=== PATIENT | female | born 1965 | race Caucasian/White ===

== ENCOUNTER 2017-03-07 10:03 | Emergency (ER) | payer SELFPAY ==
[2017-03-07 10:50] VITALS: BP 140/70; PULSE 70; RESP 16; TEMP 97; O2SAT 98; BMI 39.7
--- NOTE | 2017-03-07 12:04 | ED PDOC ---
HPI: Skin/Bite Injury Chief Complaint (Provider): 52 noé good female presents with complaints of left arm rash. She states History Per: Patient History/Exam Limitations: no limitations Onset/Duration Of Symptoms: Days (4 days) Location Of Injury: Left: Elbow, Shoulder Quality Of Symptoms: Painful, Itching Severity: Mild Pain Scale Rating Of: 4 Time Seen by Provider: 03/07/17 10:32 Chief Complaint (Nursing): Abnormal Skin Integrity Past Medical History - Medical History PMH: No Chronic Diseases Denies: Chronic Kidney Disease - Surgical History Surgical History: (x2) - Family History Family History: States: No Known Family Hx Vital Signs: Last Vital Signs Temp 97.0 F L 03/07/17 10:49 Pulse 70 03/07/17 10:49 Resp 16 03/07/17 10:49 BP 140/70 03/07/17 10:49 Pulse Ox 98 03/08/17 10:11 - Home Medications Home Medications: Ambulatory Orders Medication Instructions Recorded Oxycodone HCl/Acetaminophen 1 tab PO .Q4-6 PRN 03/15/15 [Percocet 325 mg-5 mg] Cephalexin [Keflex] 500 mg PO QID #28 capsule 03/07/17 - Allergies Allergies/Adverse Reactions: Allergies Allergy/AdvReac Type Severity Reaction Status Date / Time No Known Allergies Allergy Verified 07/27/14 09:46 Physical Exam - Reviewed Vital Signs Reviewed: Yes - Physical Exam Appears: Positive for: Well, Non-toxic, No Acute Distress Head Exam: Positive for: ATRAUMATIC, NORMAL INSPECTION Skin: Positive for: Warm, Dry, Rash (Localized to right elbow, central eschar. No apparent portal of entry. Inflammed. ) Eye Exam: Positive for: Normal appearance, EOMI ENT: Positive for: Normal ENT Inspection Neck: Positive for: Normal Cardiovascular/Chest: Positive for: Regular Rate, Rhythm - ECG O2 Sat by Pulse Oximetry: 98 Disposition - Patient ED Disposition Is Patient to be Admitted: No - Disposition Disposition: Routine/Home Disposition Time: 12:30 - Clinical Impression Clinical Impression: Rash - Disposition Referrals: [facility] [Outside] Condition: IMPROVED Additional Instructions: follow up with your primary doctor in 1-2 days use benadryl as needed for itchiness return to the ED with any worsening or concerning symptoms Prescriptions: Cephalexin [Keflex] 500 mg PO QID #28 capsule Instructions: Acute Rash (ED) Forms: [facility] (Swazi) Print Language: POLISH
== END 2017-03-07 15:16 | disposition home or self-care (01) ==
LOC: H.ER 10:03
DX: R21 Rash and other nonspecific skin eruption (principal)

== ENCOUNTER 2017-03-13 10:13 | Emergency (ER) | payer SELFPAY ==
[2017-03-13 10:20] VITALS: BP 143/84; PULSE 67; TEMP 97; O2SAT 100
[2017-03-13 10:21] VITALS: BMI 40.6
[2017-03-13 10:39] VITALS: RESP 16
--- NOTE | 2017-03-13 11:01 | ED PDOC ---
HPI: Skin/Bite Injury Time Seen by Provider: 03/13/17 11:00 Chief Complaint (Nursing): Abnormal Skin Integrity Chief Complaint (Provider): rash History Per: Patient Additional Complaint(s): 52-year-old female presents to emergency department for evaluation of ongoing rash. Patient was seen in ER last week and was given prescription for Keflex she states rash has not improved with medication. She states rash started as patch on left arm and has since spread to right arm, right thigh and torso. Rash is associated with pruritus and no pain. No fever or chills. No recent travel, no known insect bites or infestations, no new lotions, soaps, detergents , perfumes, meds vitamins or supplements. Past Medical History Reviewed: Historical Data, Nursing Documentation, Vital Signs Vital Signs: Last Vital Signs Temp 97 F L 03/13/17 10:36 Pulse 67 03/13/17 10:36 Resp 16 03/13/17 10:36 BP 143/84 03/13/17 10:36 Pulse Ox 100 03/13/17 11:13 - Medical History PMH: No Chronic Diseases - Surgical History Surgical History: (x2) - Family History Family History: States: No Known Family Hx - Living Arrangements Living Arrangements: With Family - Social History Current smoker - smoking cessation education provided: No Alcohol: None Drugs: Denies - Home Medications Home Medications: Ambulatory Orders Medication Instructions Recorded Oxycodone HCl/Acetaminophen 1 tab PO .Q4-6 PRN 03/15/15 [Percocet 325 mg-5 mg] Cephalexin [Keflex] 500 mg PO QID #28 capsule 03/07/17 DiphenhydrAMINE [Benadryl] 25 mg PO ASDIR #1 packet 03/13/17 predniSONE [Prednisone] 20 mg PO BID #10 tab 03/13/17 - Allergies Allergies/Adverse Reactions: Allergies Allergy/AdvReac Type Severity Reaction Status Date / Time No Known Allergies Allergy Verified 07/27/14 09:46 Review of Systems ROS Statement: Except As Marked, All Systems Reviewed And Found Negative Constitutional: Negative for: Fever, Chills ENT: Negative for: Throat Pain, Throat Swelling Respiratory: Negative for: Shortness of Breath, SOB with Exertion Gastrointestinal: Negative for: Nausea, Vomiting Skin: Positive for: Rash (x 1 week) Physical Exam - Reviewed Nursing Documentation Reviewed: Yes Vital Signs Reviewed: Yes - Physical Exam Appears: Positive for: Well, Non-toxic, No Acute Distress Skin: Positive for: Rash (maculopapular and urticarial rash noted to bilateral arms, legs and torso) Eye Exam: Positive for: Normal appearance, EOMI, PERRL ENT: Negative for: Pharyngeal Erythema, Tonsillar Swelling Cardiovascular/Chest: Positive for: Regular Rate, Rhythm Respiratory: Positive for: Normal Breath Sounds Extremity: Negative for: Pedal Edema Neurologic/Psych: Positive for: Alert, Oriented - ECG O2 Sat by Pulse Oximetry: 100 Pulse Ox Interpretation: Normal Medical Decision Making Medical Decision Making: Impression: Contact dermatitis Plan: IM solumedrol Patient was instructed to stop keflex. Rx benadryl and prednisone given. Patient has appt this coming with clinic for follow up. Disposition - Clinical Impression Clinical Impression: Contact dermatitis - Patient ED Disposition Is Patient to be Admitted: No Counseled Patient/Family Regarding: Diagnosis, Need For Followup, Rx Given - Disposition Referrals: [facility] [Outside] Disposition: Routine/Home Disposition Time: 11:29 Condition: STABLE Additional Instructions: Take rx meds as directed. Follow up with clinic this coming as scheduled. Prescriptions: DiphenhydrAMINE [Benadryl] 25 mg PO ASDIR #1 packet predniSONE [Prednisone] 20 mg PO BID #10 tab Instructions: Contact Dermatitis (ED) Forms: [facility] (Vietnamese) Print Language: PASHTO
== END 2017-03-13 12:08 | disposition home or self-care (01) ==
LOC: H.ER 10:13
DX: L25.9 Unspecified contact dermatitis, unspecified cause (principal)
CPT/HCPCS: 96372; 99282; J2930